=== PATIENT | male | born 1955 | race Caucasian/White ===

== ENCOUNTER 2025-01-26 13:57 | Emergency (ER) | payer MEDICARE, OTHER, SELFPAY ==
[2025-01-26] VITALS (7 sets, daily range): BP systolic 119–142; BP diastolic 79–95; BMI 24.8
[2025-01-26 14:22] LABS: Glucose - Point of Care 84 mg/dl (70-99)
--- NOTE | 2025-01-26 14:23 | CON.NEURO ---
Addendum entered and electronically signed by Darryl Doe MD 01/26/25 15:56:
Studies reviewed.
I have personally examined the patient. I reviewed and agree with the ENTERTAINMENT MUSICIAN's Note.
My addenda:
Awake, alert, interactive. No acute distress.
Speech intact.
Follows 2-step requests w/o difficulty. No tremor.
Extra-ocular movements grossly intact.
Facial movements full and symmetric. Hearing intact to normal conversational volume.
Normal UE movements bilaterally.
Neck: full ROM.
Chest: no dyspnea
Heart: no JVD
Ext: (-) Clubbing, (-) Cyanosis, (-) Edema
IMPRESSIONS/RECOMMENDATIONS:
Abrupt onset of left facial sensation change and left upper extremity sensation change which has been transient and without head discomfort
Most likely secondary to transient ischemic attack
Check CT of head, completed
CTA demonstrated no significant stenosis
Initiate aspirin and clopidogrel for 21 days then aspirin alone
Outpatient MRI of brain may be of assistance
Check lipid profile
Consider atorvastatin initiation if LDL greater than 70
D/W patient / family / nursing
All questions answered.
Will continue to follow pending results.
Original Note:
Documented by User: Bee Herman NP 01/26/25 15:27
Neuro Assessment/Plan
Assessment
Patient is a 69 yo male with a past medical history of mitral valve repair surgery, osteoarthritis presented to [facility] on 01/26/2025 for evaluation of left face and left upper extremity numbness.
Head CT: No evidence of acute intracranial abnormality.
Head and neck CTA:
No significant calcification or narrowing involving the carotid bulbs, proximal internal carotid arteries, or common carotid arteries bilaterally.
Mild calcification of the cavernous left ICA with less than 50% diameter reduction.
No evidence for intracranial large vessel occlusion or high-grade stenosis.
No significant narrowing involving the vertebral or basilar arteries. No significant narrowing involving the posterior cerebral arteries.
Labs: lipid panel pending, hgb A1C pending
Plan
Impressions: abrupt onset of left facial and left upper extremity numbness most likely due to TIA, CVA less likely given resolution of symptoms
-check MRI brain without contrast as outpatient
-CTA head and neck without significant stenosis
-start ASA 81mg and Clopidogrel 75 mg daily for 21 days followed by monotherapy with aspirin 81 mg daily.
-check hemoglobin A1C. Goal is normoglycemia.
-check LDL, goal LDL <70, pending results may need to start atorvastatin
-education material to be provided
All questions encouraged and answered, plan of care discussed with Dr. Doe, hospitalist, patient and family
Consultation
Order
Date of Consultation: 01/26/25
Requesting Provider: hospitalist
Reason for Consult: left face and left upper extremity numbness
Subjective/Objective
Subjective Data
Date of Service: January 26, 2025
Patient is a 69 yo male with a past medical history of mitral valve repair surgery, osteoarthritis presented to [facility] on 01/26/2025 for evaluation of left face and left upper extremity numbness. Patient was in his usual state of health until today
at 1315 when he developed left facial numbness and left upper extremity numbness. He arrived to ED at 1412 as a stroke alert. Taken to head CT which showed no evidence of acute intracranial abnormality. Head and neck CTA with no significant
calcification or narrowing involving the carotid bulbs, proximal internal carotid arteries, or common carotid arteries bilaterally, mild calcification of the cavernous left ICA with less than 50% diameter reduction, no evidence for intracranial
large vessel occlusion or high-grade stenosis, no significant narrowing involving the vertebral or basilar arteries, no significant narrowing involving the posterior cerebral arteries. Denies neck pain, back pain, headache, vision changes,
bowel/bladder issues. Denies issues with speech or swallow. Denies chest pain or dyspnea. After head CT symptoms resolved. Currently NIHSS 0, not a TNK candidate.
Objective Data
Vital Signs
Temp Pulse Resp BP Pulse Ox
98.1 F 66 20 125/79 98
01/26/25 14:03 01/26/25 14:21 01/26/25 14:21 01/26/25 14:03 01/26/25 14:21
Patient Allergies
No Known Allergies Allergy (Verified 07/18/23 16:02)
CVA Assessment
Onset of Stroke Symptoms
Onset of symptoms known: Yes
Date of onset of symptoms: 01/26/25
Time of onset of symptoms: 13:15
Time pt last seen normal is known: Yes
Date last time pt seen normal: 01/26/25
Time last time pt seen normal: 13:15
NIH Stroke Score
Level of Consciousness: 0 - Alert
LOC Questions: 0-Answers both correctly
LOC Commands: 0-Performs both correctly
Best Horizontal Gaze: 0-Normal
Visual Lake: 0=Normal, no visual loss
Facial Palsy: 0=Normal, symmetrical
Motor - Right Arm: 0=No drift 10 seconds
Motor - Left Arm: 0=No drift 10 seconds
Motor - Right Le-No drift 5 seconds
Motor - Left Le-No drift 5 seconds
Limb Ataxia: 0-Absent
Sensation: 0-Normal
Best Language: 0-No aphasia
Dysarthria: 0-Normal
Extinction and Inattention: 0-No abnormality
NIH Total Score:: 0
Tenecteplase Contraindications
Inclusion and Exclusion criteria reviewed: Yes
IAT Contraindications: NIHSS < 6
Modified Migdalia Score (MRS)
-
Modified Progreso Scale (mRS): No symptoms
Score: 0
Review of Systems
-
History Source: Patient
Constitutional: No Symptoms
EENT: No Symptoms Reported
Respiratory: No Symptoms
Cardiac: No Symptoms
Abdomen/GI: No Symptoms
Genitourinary: No Symptoms
Musculoskeletal: No Symptoms
Skin: No Symptoms
Neuro: Numbness
Endocrine: No Symptoms
Hematologic / Lymphatic: No Symptoms
Physical Exam
-
General: No Apparent Distress, Comfortable and Appears Stated Age
HEENT: Normocephalic, Atraumatic and Anicteric
Neck: Full Range of Motion
Respiratory: No Dyspnea
Cardiac: No JVD
GI: Non-distended
Skin: Unremarkable
Extremities: No Clubbing, No Cyanosis and No Edema
Psych: Unremarkable
Extended Neurological Exam
Mood & Affect: Mood Unremarkable
Attention Span & Concentration: Awake, Alert, Interactive and No Difficulty with 2 Step Request
Memory: Unremarkable
Tremor: Hand Tremor Absent and Head Tremor Absent
Involuntary Movement: None
Speech: Quality Unremarkable, Quantity Unremarkable and Rate of Production Unremarkable
Cranial Nerve II: Left Eye: Visual Lake Intact
Cranial Nerve II: Right Eye: Visual Lake Intact
Cranial Nerves III, IV, : Extraocular Movement: Extraocular Movement Full in all Directions
Cranial Nerve VII: Facial Symmetry: Normal Facial Symmetry
Cranial Nerve VIII: Hearing: Unremarkable Hearing to Normal Conversational Volume
Cranial Nerves IX, X: Palate Movement: Palate Elevation Symmetric
Cranial Nerve XI: Shoulder Shrug: Unremarkable
Cranial Nerve XII: Tongue Protusion: Midline
Muscle Strength, Overall: Full Throughout
Pronator Drift: No Drift in Upper Extremities and No Drift in Lower Extremities
Coordination: [id number] Testing Unremarkable and Reaches for Objects without Difficulty
Data Reviewed
-
CT-A: Ordered
CT Head: Ordered, Report Reviewed and Image Reviewed
Labs: Report Reviewed
Lipid Profile: Ordered
HgbA1C: Ordered
Reviewed with: Physician, Nurse, Patient and Family
Old Records: Summarized
Medications
-
Home Medications
�Medication �Instructions �Recorded
No Meds [No Current Medications] 07/18/23
Past History
Past History
ED Past Medical History: None
ED Past Surgical History: Cardiac (mitral valve surgery)
Family/Social History
Tobacco: Non-smoker
Alcohol: None
Drug: None
Personal:
Living: with family

Documented by User: Darryl Doe MD 01/26/25 15:41
CVA Assessment
NIH Stroke Score
NIH Total Score:: 0
Modified Migdalia Score (MRS)
-
Score: 0
--- NOTE | 2025-01-26 14:43 | ED.CVA ---
History of Present Illness
General
Chief Complaint: CVA/TIA Symptoms
Source: patient and spouse
Exam Limitations: none
Time Seen by Provider: 01/26/25 14:12
Nursing documentation reviewed up to this point in time: agreed with
Onset of Stroke Symptoms
Onset of symptoms known: Yes
Date of onset of symptoms: 01/26/25
Time of onset of symptoms: 13:15
History of Present Illness
History of Present Illness:
Patient with history of aortic valve repair, presents to ED secondary to sudden onset of left-sided teeth, left side of face, and the left arm numbness sensation, on approximately 1 hour prior to arrival. Denies blurred vision. Denies headache.
Denies dizziness. Denies weakness. Denies difficulty ambulation. Denies trauma. Denies neck pain. Denies previous history of similar symptoms. At the time of evaluation ED, patient states that his symptoms have improved significantly.
Past History
Past History
ED Past Medical History: None
ED Past Surgical History: Cardiac (mitral valve surgery)
Social History
Tobacco: Non-smoker
Alcohol: None
Drug: None
Personal:
Living: with family
Review of Systems
Review of Systems
Allergies reviewed?: Yes
All Other Systems: ROS reviewed and negative except as documented in HPI and ROS
Constitutional: Reports no symptoms
EENT: Reports no symptoms
Respiratory: Reports no symptoms
Cardiac: Reports no symptoms
ABD/GI: Reports no symptoms
Musculoskeletal: Reports no symptoms
Skin: Reports no symptoms
Neurological: Reports numbness; Denies dizzy, headache or weakness
Phy Exam
Physical Exam
Physical Exam:
Physical Exam
General: no apparent distress, not acutely ill. afebrile
Head: nc/at. eomi
Neck: supple. no meningeal signs.
Heart: s1/s2 regular rate and rhythm
Lungs: no acute respiratory distress. clear bilaterally
Abdomen: normal bowel sounds. not tender.
Neuro: alert and oriented x 3. no focal neurological deficits. normal speech. normal gait.
Skin: no rash
Psychiatric: well kept. interactive and cooperative
Extremities: no edema. no calf tenderness.
Course
Orders/Labs/Results
Orders:
Orders
01/26/25 14:14
CT HEAD STROKE ALERT W/o Cont Urgent
Reason For Exam: numbness/tingling
01/26/25 14:23
EKG [Electrocardiogram (*1)] Urgent
Reason for Study: Fatigue / Weakness
01/26/25 14:24
NEUROLOGY CONSULT Urgent
Consulting Provider: Darryl Doe
Was physician already notified: Yes
Reason for consult: numbness
EKG- Treatment ONCE
01/26/25 14:27
Cardiovascular Evaluation Urgent
Comment: ADD ON
Complete Blood Count/With Diff Urgent
Comprehensive Metabolic Panel Urgent
Glycohemoglobin (HgbA1c) Urgent
Magnesium Urgent
PTT Urgent
Prothrombin Time Urgent
Troponin I Urgent
01/26/25 14:32
Add On- LAB Routine
Tests Added?: hgb a1c, lipid panel
CT HEAD/NECK ANG STROKE ALERT Stat
Comment:
Reason For Exam: stenosis
Abnormal Lab Results
01/26/25
14:27
RBC 4.66 L 10^6/uL
(4.70-6.10)
MPV 11.1 H fL
(7.4-10.4)
BUN 22 H mg/dl
(9-20)
01/26/25 14:27
01/26/25 14:27
Vital Signs
Initial and Last Documented VS:
Initial Vital Signs
Temp Pulse Resp BP Pulse Ox
98.1 F 61 16 125/79 97
01/26/25 14:03 01/26/25 14:03 01/26/25 14:03 01/26/25 14:03 01/26/25 14:03
Last Documented Vital Signs
Temp Pulse Resp BP Pulse Ox
98.1 F 56 15 129/84 98
01/26/25 14:03 01/26/25 16:55 01/26/25 16:55 01/26/25 16:55 01/26/25 16:55
MDM/Problems Addressed
MDM/Problems Addressed:
After initial evaluation, stroke alert activated. Patient evaluated at bedside by Dr. Doe, neurology.
CT/CT angiogram head and neck performed, without acute findings. Patient with complete vertigo symptoms during observation.
History and exam concerning for potential TIA. Dr. Doe recommends discharging patient home with 3-week course of aspirin and Plavix, with continuation of aspirin only after 3 weeks, along with MRI brain as an outpatient, to be arranged by his PCP.
Patient and spouse expressed understanding at time of discharge.
*Pulse Oximetry
SaO2: 100
Oxygen Mode of Delivery: Room air
Patient hypoxic: no
*Critical Care Note
Total Time (30-74mins, 75-104mins- exclusive of procedures): Not Applicable
ED Attending Note
-
Portions of this chart may have been created with voice recognition software.� Occasional wrong word or��sound alike� substitutions may have occurred due to the inherent limitations of voice recognition software.
Discharge Plan
Departure
Patient Disposition: Home (Routine Discharge)
Date of Disposition: 01/26/25
Time of Disposition: 18:02
Patient with high blood pressure during this ER visit?: Yes
Condition: Fair
Discharge Problem:
Brain TIA
Instructions: Transient Ischemic Attack (DC)
Prescriptions:
New
clopidogrel [Plavix] 75 mg tablet
75 mg PO DAILY Qty: 21 0RF
Referrals:
Celena Chisholm MD [Family Provider, Family Practice]
Activity Restrictions/Additional Instructions:
As discussed, please follow-up with your primary care physician for reevaluation, including obtaining MRI brain as an outpatient. Please consider return to ED with recurrent symptoms. Your prescription has been sent electronically to [facility] pharmacy
in [place]. In the meantime, recommend taking 81 mg aspirin daily along with prescribed Plavix medication x 3 weeks. After 3 weeks, Plavix will be discontinued. However, you will continue aspirin 81 mg daily
Interventions
Interventions:
*Risk Screen - Suicide Last Done: 01/26/25 14:08
*General Assessment Last Done: 01/26/25 14:23
*Neglect/Abuse Screening Last Done: 01/26/25 14:08
*ED- Fall Risk Assessment Last Done: 01/26/25 14:23
*ED COVID-19 Vaccine History Last Done: 01/26/25 14:23
*Nursing Disposition Last Done: 01/26/25 18:15
ED- Pulmonary Assessment Last Done: 01/26/25 14:23
ED- Neurological Assessment Last Done: 01/26/25 14:23
ED- Cardiac Assessment Last Done: 01/26/25 14:23
ED Swallowing Screen Last Done: 01/26/25 14:23
Discharge Date and Time
Discharge Date/Time: 01/26/25 18:16
Print Language: [place]
--- NOTE | 2025-01-26 14:44 | EDRN ---
Dr. Doe currently at the pts bedside
[2025-01-26 14:52] LABS: ALT (SGPT) 14 U/L (0-50); AST (SGOT) 21 U/L (17-59); Albumin 4.5 g/dl (3.5-5.0); Alkaline Phosphatase 51 U/L (38-126); Blood Urea Nitrogen 22 mg/dl (9-20); Calcium 9.2 mg/dl (8.4-10.2); Carbon Dioxide 27 mmol/L (22-30); Chloride 106 mmol/L (98-107); Estimated Creatinine Clearance 72 ml/min; Glucose 91 mg/dl (70-99); Magnesium 1.8 mg/dl (1.6-2.3); Potassium 4.2 mmol/L (3.5-5.1); Sodium 139 mmol/L (135-145); Total Protein 8.1 g/dl (6.3-8.2); eGFR > 60.00
[2025-01-26 14:58] LABS: INR 1.00; PT 13.7 Sec (11.4-14.6)
[2025-01-26 14:59] LABS: APTT 28.6 Sec (23.4-35.0); Hematocrit 42.2 % (39.0-52.0); Hemoglobin 14.1 g/dL (13.0-18.0); Mean Corp Hgb Conc. 33.4 g/dL (33.0-37.0); Mean Corpuscular Volume 90.6 fL (80.0-94.0); Nucleated Red Blood Cells % 0 % (-); Platelet Count 247 10^3/uL (130-400); Red Cell Dist. Width 13.2 % (11.5-14.5)
[2025-01-26 15:02] LABS: Troponin I 0.013 ng/ml
[2025-01-26 16:53] LABS: HDL Cholesterol 51 mg/dl; LDL Cholesterol, Calculated 99 mg/dl; Very Low Density Lipoprotein 14 mg/dl (0-30)
--- NOTE | 2025-01-26 16:54 | EDRN ---
the pt pressed the call roberts and this RN entered the pts room, the pt stated that he needed to use the bathroom, the pt was unhooked from the monitor and was able to ambulate to the bathroom and back to the stretcher with no issues, the pt also
stated that he wants to go home, this RN notified Dr. Guzman
[2025-01-27 10:16] LABS: Glycohemoglobin (HgbA1c) 5.3 % (4.0-5.6)
== END 2025-01-26 18:16 | disposition home or self-care (01) ==
LOC: EMR 13:57
PROVIDERS: CONSULT PHYSICIAN Psychiatry & Neurology Neurology; EMERGENCY PHYSICIAN Emergency Medicine; FAMILY PHYSICIAN Family Medicine
DX: G45.9 Transient cerebral ischemic attack, unspecified (principal); Z79.02 Long term (current) use of antithrombotics/antiplatelets; Z79.82 Long term (current) use of aspirin; Z86.73 Personal history of transient ischemic attack (TIA), and cerebral infarction without residual deficits
CPT/HCPCS: 99284; 70450; 70496; 70498; 80053; 80061; 82962; 83036; 83735; 84484; 85025; 85610; 85730; 93005; Q9967